=== PATIENT | female | born 1985 ===

== ENCOUNTER 2019-10-06 12:52 | Inpatient (IN) | payer OTHER, SELFPAY ==
[2019-10-06 13:01] VITALS: BP 131/90; PULSE 110; RESP 18; TEMP 36.7; O2SAT 99; BMI 16.1
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
[2019-10-06 14:01] LABS: HCG Qualitative Urine. Negative (Negative)
[2019-10-06 14:02] LABS: Add Urine Microscopic? YES; Bilirubin Urine Neg (NEGATIVE); Blood Urine Neg (Negative); Glucose Urine UA Norm (Normal); Ketones Urine Negative (Negative); Leukocyte Esterase Urine 1+ (Negative); Nitrate Urine Positive (Negative); Protein Urine Neg (Negative); Urine Appearance SL Hazy (CLEAR); Urine Color Yellow (Yellow); Urobilinogen Urine Norm (Negative)
[2019-10-06 14:08] LABS: Basophils % 0.6 %; Eosinophils # 0.2 10^3/uL (0.0-0.8); Eosinophils % 3.6 %; Hematocrit 35.9 % (37.0-47.0); Hemoglobin 11.5 g/dL (11.5-15.3); Lymphocytes % 30.8 %; Mean Corpuscular Hemoglobin 31.1 pg (28.0-34.0); Mean Platelet Volume 10.4 fL (7.4-10.4); Monocytes # 0.4 10^3/uL (0.2-0.9); Monocytes % 6.9 %; Neutrophils # 3.69 10^3/uL (1.8-7.7); Neutrophils % 57.8 %; Nucleated Red Blood Cells % 0 %; Platelet Count 279 10^3/cmm (130-400); Red Cell Distribution Width 12.1 % (12.1-15.1); White Blood Count 6.4 10^3/uL (4.0-10.0)
[2019-10-06 14:09] LABS: Amphetamines Screen Urine Positive (Negative); Barbiturates Screen Urine Negative (Negative); Benzodiazepines Screen Urine Positive (Negative); Cocaine Screen Urine Negative (Negative); Opiate Screen Urine Negative (Negative); PCP Screen Urine Negative (Negative); THC Screen Urine Positive (Negative)
[2019-10-06 14:13] LABS: Add Urine Culture? Yes; Bacteria Urine 2+; Mucus Urine 1+; Squamous Epithelial Cell Urine 0-4 (0-5); WBC Urine 40-55 /hpf (0-5)
[2019-10-06 14:32] LABS: Alanine Aminotransferase 17 U/L (0-33); Albumin Level 3.8 g/dL (3.5-5.2); Alkaline Phosphatase 71 IU/L (35-105); Anion Gap 11.4 (5-19); Aspartate Amino Transferase 20 U/L (0-32); Blood Urea Nitrogen 11 mg/dL (6-20); Calcium 8.4 mg/dL (8.5-10.5); Carbon Dioxide 26 mmol/L (22-29); Chloride 108 mmol/L (98-107); Globulin 2.4 g/dL (1.3-4.6); Glomerular Filtration Rate 82.6 mL/min (90-130); Glucose 75 mg/dL (65-115); Osmolality Calculated 289 mOsm/kg (285-295); Potassium 3.4 mmol/L (3.5-5.1); Sodium 142 mmol/L (136-145); Thyroid Stimulating Hormone 1.28 uIU/mL (0.27-4.20); Total Bilirubin 0.6 mg/dL (0.15-1.2); Total Protein 6.2 g/dL (6.6-8.7)
[2019-10-06 14:49] LABS: Acetaminophen < 5.0 ug/mL (10-30); Alcohol Level < 10 mg/dL (0-10); Salicylate < 0.3 mg/dL (3-10)
[2019-10-06 15:25] VITALS: BP 138/91; PULSE 101; RESP 20; O2SAT 100
[2019-10-06 16:08] VITALS: BP 135/96; PULSE 92; RESP 20; TEMP 36.7; O2SAT 100
--- NOTE | 2019-10-06 17:30 | PC.NURSE ---
report called to jay louise rn.
[2019-10-06 17:41] VITALS: BP 147/102; PULSE 96; RESP 18; O2SAT 100
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
[2019-10-06] MEDS: nicotine 2 mg Gum BUCCAL (19:29)
[2019-10-06 20:32] VITALS: BP 119/85; PULSE 92; RESP 14; TEMP 36.9; O2SAT 100
[2019-10-07 06:00] VITALS: BP 130/82; PULSE 93; RESP 15; TEMP 36.7; O2SAT 99
[2019-10-07] MEDS: nitrofurantoin SR (BID) 100 mg Capsule PO (08:07)
[2019-10-07] MEDS: nicotine 21 mg Patch 1 PATCH TRANSDERMA (08:08)
[2019-10-07] MEDS: blistex lip oint 7 gm Tube 1 APPLIC TOPICAL (11:30)
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
[2019-10-07 15:48] VITALS: BP 130/82; PULSE 93; RESP 15; TEMP 36.7; O2SAT 99
== END 2019-10-07 16:16 | disposition home or self-care (01) | DRG 897 ==
LOC: ER 15:32 → NP 17:26
PROVIDERS: Nurse Practitioner Family; Admitting Provider Psychiatry & Neurology Psychiatry; Emergency Provider Family Medicine; Visit Provider Psychiatry & Neurology Psychiatry
DX: F15.20 Other stimulant dependence, uncomplicated (principal); N39.0 Urinary tract infection, site not specified; F23 Brief psychotic disorder; F17.210 Nicotine dependence, cigarettes, uncomplicated; F41.8 Other specified anxiety disorders; F68.8 Other specified disorders of adult personality and behavior; S00.93XA Contusion of unspecified part of head, initial encounter; X58.XXXA Exposure to other specified factors, initial encounter
CPT/HCPCS: 12345; 70450; 70486; 80053; 80306; 80307; 81001; 81003; 81025; 84443; 85025; 87077; 87086; 87186; 99284